=== PATIENT | female | born 1935 | race Caucasian/White ===

== ENCOUNTER 2017-01-14 09:54 | Outpatient (CLI) | payer OTHER ==
[2016-02-23 21:18] VITALS: BP 153/65
== END 2017-01-14 09:55 ==
LOC: RAD 09:54
PROVIDERS: ATTEND Family Medicine
DX: Z78.0 Asymptomatic menopausal state (principal)
CPT/HCPCS: 77080

== ENCOUNTER 2017-01-18 10:26 | Outpatient (CLI) | payer OTHER ==
[2016-02-23 21:18] VITALS: BP 153/65
[2017-01-18 11:20] LABS: eGFR (African) > 60; eGFR (Non-African) > 60
== END 2017-01-18 10:27 ==
LOC: LAB 10:26
PROVIDERS: ATTEND Family Medicine
DX: E78.2 Mixed hyperlipidemia (principal); E03.9 Hypothyroidism, unspecified
CPT/HCPCS: 36415; 80053; 80061; 84443

== ENCOUNTER 2017-01-19 15:02 | Outpatient (CLI) | payer OTHER ==
[2016-02-23 21:18] VITALS: BP 153/65
--- NOTE | 2017-01-19 18:40 | Diagnostic Imaging Report ---
NICOLÁS NIETO [facility] [id number] [facility] [address] [place] [address]. [id number] Report Submission Date: Jan 19, 2017 4:10:54 PM CDT Patient Study Name: RIZWANA KWON Date: Jan 19, 2017 3:30:39 PM CDT Modality Type: CR Gender: F Description: PELVIS : 35 Institution: [facility] Physician: NICOLÁS NIETO Left hip 2 views History: Hip pain without injury Findings: There is overcoverage of the left femoral head by a prominent acetabulum. There is no evidence of fracture, dislocation, significant arthropathy, focal bone lesion. 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 Electronically signed on Jan 19, 2017 4:10:54 PM CDT by: Toney JUARES
== END 2017-01-19 15:03 ==
LOC: RAD 15:02
PROVIDERS: ATTEND Family Medicine
DX: M25.552 Pain in left hip (principal)

== ENCOUNTER 2017-01-28 07:55 | Emergency (ER) | payer OTHER ==
[2017-01-28] MEDS ORDERED: methylPREDNISolone SOD SUCC 125 MG/2 ML VIAL ONE (08:05)
[2017-01-28] MEDS ORDERED: methylPREDNISolone SOD SUCC 125 MG/2 ML VIAL IM ONE (08:06)
--- NOTE | 2017-01-28 08:07 | ED Physician Documentation ---
General Adult - HISTORIAN Historian: patient - HPI Stated Complaint: lip swelling, allergic reaction Chief Complaint: General Adult Onset: hours Timing: still present Severity: moderate Further Comments: yes (Pt is an 82 yo female with pronounced swelling of her lower lip. Pt has had similar sx twice before. Pt awoke with the swelling, which got worse as time progressed. 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 Pt is on Lisinopril among other meds, but has been on this for years, and has been on it since the last episode of lip swelling about 1 month ago. No difficulty with airway, swallowing or breathing. Pt notes that she ate fish last evening, but is not known to have a fish allergy.) - ROS CONST: no problems EYES/ENT: other (lip swelling) CVS/RESP: none GI/: none MS/SKIN/LYMPH: none - PAST HX Past History: hypertension, other (thyroid d/o) Allergies/Adverse Reactions: Allergies Allergy/AdvReac Type Severity Reaction Status Date / Time Sulfa (Sulfonamide AdvReac Intermediate unknown Verified 01/28/17 08:16 Antibiotics) - SOCIAL HX Smoking History: non-smoker - FAMILY HX Family History: No - VITAL SIGNS Vital Signs: Vital Signs Temp Pulse Resp BP Pulse Ox 153/65 02/23/16 20:55 - REVIEWED ASSESSMENTS Nursing Assessment Reviewed: Yes Vitals Reviewed: Yes Progress - Progress Progress: Solu-medrol 125 mg IM improved Rx Prednisone 50 mg. Take one by mouth once daily for 4 days. Start on . Continue Benadryl as directed. Pt advised to discontinue lisinopril and f/u with pcp. ED Results Lab/Radiology - Orders Orders: ED Orders Category Date Time Status methylPREDNISolone SOD SUCC [Solu-MEDROL] Med 01/28/17 08:06 Once 125 mg IM NOW ONE General Adult Physical Exam - PHYSICAL EXAM GENERAL APPEARANCE: no distress EENT: pharynx normal NECK: normal inspection, supple RESPIRATORY: no resp distress, chest non-tender, breath sounds normal CVS: reg rate & rhythm, heart sounds normal BACK: normal inspection SKIN: warm/dry, normal color EXTREMITIES: non-tender, normal range of motion, no evidence of injury NEURO: oriented X3, motor nml, sensation nml Discharge Clincal Impression: lip swelling, allergic reaction Referrals: Kamla Lugo MD [Primary Care Provider] - Condition: Good Disposition: 01 HOME, SELF-CARE Decision to Admit: NO Decision Time: 09:27
[2017-01-28 09:45] VITALS: BP 168/75
== END 2017-01-28 09:45 | disposition home or self-care (01) ==
LOC: ED 07:55
DX: T78.40XA Allergy, unspecified, initial encounter (principal); X58.XXXA Exposure to other specified factors, initial encounter; Y93.9 Activity, unspecified; Y99.9 Unspecified external cause status
CPT/HCPCS: J2930 ×2; 96372; 99283

== ENCOUNTER 2017-02-11 14:25 | Outpatient (CLI) | payer OTHER | END 2017-02-11 14:26 | LOC: POD 14:25 | PROVIDERS: ATTEND Podiatrist | DX: B35.1 Tinea unguium (principal); M79.674 Pain in right toe(s); M79.675 Pain in left toe(s) | CPT/HCPCS: 11721; G0463 ==

== ENCOUNTER 2017-02-22 07:09 | Emergency (ER) | payer OTHER ==
--- NOTE | 2017-02-22 07:48 | ED Physician Documentation ---
General Adult - HISTORIAN Historian: patient - HPI Chief Complaint: General Adult Onset: hours (0600) Timing: still present Severity: mild Further Comments: yes (Patient was here about 1 month ago for swollen lips, felt due to lisinopril and it was stopped. (That was the second episode of her tongue swelling.) Patient stopped the lisinopril. Is allergic to sulfa.) - ROS CONST: no problems. denies: fever, sweating - PAST HX Past History: hypertension, other (history of menningitis) Surgeries/Procedures: hysterectomy, other (cerebral shunt) Immunizations: referred to PCP Allergies/Adverse Reactions: Allergies Allergy/AdvReac Type Severity Reaction Status Date / Time LENNY Inhibitors Allergy Intermediate lips Verified 02/22/17 07:41 swelling Sulfa (Sulfonamide AdvReac Intermediate unknown Verified 02/22/17 07:41 Antibiotics) Home Medications: Ambulatory Orders Medication Instructions Recorded Epinephrine [Epipen 2-Los] 0.3 mg IJ DIRECTED #1 ml 02/22/17 - SOCIAL HX Smoking History: non-smoker Alcohol Use: none Drug Use: none - FAMILY HX Family History: No - VITAL SIGNS Vital Signs: Vital Signs Temp Pulse Resp BP Pulse Ox 168/75 01/28/17 09:44 - REVIEWED ASSESSMENTS Nursing Assessment Reviewed: Yes General Adult Physical Exam - PHYSICAL EXAM GENERAL APPEARANCE: no distress EENT: eye inspection normal, other (swelling to right tongue area, no dental problems appreciated. ) NECK: normal inspection, thyroid normal. No: lymphadenopathy, stiff neck RESPIRATORY: no resp distress, chest non-tender, breath sounds normal. No: wheezes, rales, rhonchi CVS: reg rate & rhythm, heart sounds normal, equal pulses, no murmur SKIN: warm/dry NEURO: oriented X3 Discharge Clincal Impression: Mild tongue swelling Prescriptions: Epinephrine [Epipen 2-Los] 0.3 mg IJ DIRECTED #1 ml Referrals: Kamla Lugo MD [Primary Care Provider] - 2 Days Additional Instructions: General Adult - HISTORIAN Historian: patient - HPI Chief Complaint: General Adult Onset: hours (0600) Timing: still present Severity: mild Further Comments: yes (Patient was here about 1 month ago for swollen lips, felt due to lisinopril and it was stopped. (That was the second episode of her tongue swelling.) Patient stopped the lisinopril. Is allergic to sulfa.) - ROS CONST: no problems. denies: fever, sweating - PAST HX Past History: hypertension, other (history of menningitis) Surgeries/Procedures: hysterectomy, other (cerebral shunt) Immunizations: referred to PCP Allergies/Adverse Reactions: Allergies Allergy/AdvReac Type Severity Reaction Status Date / Time LENNY Inhibitors Allergy Intermediate lips Verified 02/22/17 07:41 swelling Sulfa (Sulfonamide AdvReac Intermediate unknown Verified 02/22/17 07:41 Antibiotics) Home Medications: Ambulatory Orders Medication Instructions Recorded Epinephrine [Epipen 2-Los] 0.3 mg IJ DIRECTED #1 ml 02/22/17 - SOCIAL HX Smoking History: non-smoker Alcohol Use: none Drug Use: none - FAMILY HX Family History: No - VITAL SIGNS Vital Signs: Vital Signs Temp Pulse Resp BP Pulse Ox 168/75 01/28/17 09:44 - REVIEWED ASSESSMENTS Nursing Assessment Reviewed: Yes General Adult Physical Exam - PHYSICAL EXAM GENERAL APPEARANCE: no distress EENT: eye inspection normal, other (swelling to right tongue area, no dental problems appreciated. ) NECK: normal inspection, thyroid normal. No: lymphadenopathy, stiff neck RESPIRATORY: no resp distress, chest non-tender, breath sounds normal. No: wheezes, rales, rhonchi CVS: reg rate & rhythm, heart sounds normal, equal pulses, no murmur SKIN: warm/dry NEURO: oriented X3 Discharge Clincal Impression: Mild tongue swelling Prescriptions: Epinephrine [Epipen 2-Los] 0.3 mg IJ DIRECTED #1 ml Referrals: Kamla Lugo MD [Primary Care Provider] - 2 Days Additional Instructions: Write down what you had to eat yesterday. Make an appointment to see Dr Lugo about further work-up. If you have any further problems to let me know. Take Benadryl if needed for itching. Use epipen if you develop some severe breathing problems. Home Medications: Ambulatory Orders Epinephrine [Epipen 2-Los] 0.3 mg IJ DIRECTED #1 ml 02/22/17 Condition: Stable Disposition: 01 HOME, SELF-CARE Decision to Admit: NO Date of Decison to Admit: 02/22/17 Decision Time: 07:51 Write down what you had to eat yesterday. Make an appointment to see Dr Lugo about further work-up. If you have any further problems to let me know. Take Benadryl if needed for itching. Use epipen if you develop some severe breathing problems. Home Medications: Ambulatory Orders Epinephrine [Epipen 2-Los] 0.3 mg IJ DIRECTED #1 ml 02/22/17 Condition: Stable Disposition: 01 HOME, SELF-CARE Decision to Admit: NO Date of Decison to Admit: 02/22/17 Decision Time: 07:51
[2017-02-22] MEDS ORDERED: methylPREDNISolone ACETATE 80 MG/ML VIAL IM ONE (07:54)
[2017-02-22 08:29] VITALS: BP 150/70
== END 2017-02-22 08:09 | disposition home or self-care (01) ==
LOC: ED 07:09
DX: R60.9 Edema, unspecified (principal)
CPT/HCPCS: 96372; 99283; J1040

== ENCOUNTER 2017-05-13 14:19 | Outpatient (CLI) | payer OTHER | END 2017-05-13 14:20 | LOC: POD 14:19 | PROVIDERS: ATTEND Podiatrist | DX: B35.1 Tinea unguium (principal); M79.674 Pain in right toe(s); M79.675 Pain in left toe(s) | CPT/HCPCS: 11721; G0463 ==

== ENCOUNTER 2017-06-27 23:00 | Emergency (ER) | payer OTHER ==
[2017-06-27] MEDS ORDERED: methylPREDNISolone ACETATE 80 MG/ML VIAL IM ONE (23:10)
[2017-06-27] MEDS ORDERED: LORATADINE 10 MG TABLET PO ONE (23:10)
[2017-06-27] MEDS ORDERED: diphenhydrAMINE HCL 50 MG/ML VIAL IM ONE (23:11)
--- NOTE | 2017-06-27 23:18 | ED Physician Documentation ---
General Adult - HISTORIAN Historian: patient - HPI Stated Complaint: Lip swelling Chief Complaint: General Adult Further Comments: yes (82 year old female patient presents with complaint of lip swelling. Patient states the swelling started around 2214. Started kenalog cream on Tuesday, states she was outside mowing all day today. Denies any new food, exposure to chemicals, no new lotions or soaps. Denies SOB, denies itching or pain. 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, hypothyroidism) Allergies/Adverse Reactions: Allergies Allergy/AdvReac Type Severity Reaction Status Date / Time LENNY Inhibitors Allergy Intermediate lips Verified 06/27/17 23:22 swelling Sulfa (Sulfonamide AdvReac Intermediate unknown Verified 06/27/17 23:22 Antibiotics) Home Medications: Ambulatory Orders Medication Instructions Recorded Acetaminophen/Diphenhydramine 1 each PO HS PRN 06/27/17 [Tylenol Pm Ex-Strength Caplet] Calcium Carbonate/Vitamin D3 1 tab PO QDAY 06/27/17 [Calcium 600 + Vit D3 Caplet] Dietary Supplement [Hyprost] 1 each PO QDAY 06/27/17 Epinephrine [Epipen 2-Los] 0.3 mg IJ DIRECTED PRN 06/27/17 Ranitidine HCl 150 mg PO QDAY 06/27/17 Vitamin B Complex/Folic Acid 0.4 mg PO QDAY 06/27/17 [Super B Maxi Complex Caplet] - SOCIAL HX Smoking History: non-smoker - FAMILY HX Family History: No - VITAL SIGNS Vital Signs: Vital Signs Temp Pulse Resp BP Pulse Ox 69 16 170/72 95 06/27/17 23:00 06/27/17 23:00 06/27/17 23:00 06/27/17 23:00 - REVIEWED ASSESSMENTS Nursing Assessment Reviewed: Yes Vitals Reviewed: Yes Progress - Progress Progress: Ice to patient's lip. At discharge, symptoms improved. Reviewed discharge instructions. Patient verbalized understanding. ED Results Lab/Radiology - Orders Orders: ED Orders Category Date Time Status Loratadine [Claritin] Med 06/27/17 23:10 Once 10 mg PO NOW ONE diphenhydrAMINE HCL [Benadryl] Med 06/27/17 23:11 Once 50 mg IM NOW ONE methylPREDNISolone ACETATE [Depo-Medrol] Med 06/27/17 23:10 Once 80 mg IM NOW ONE General Adult Physical Exam - PHYSICAL EXAM GENERAL APPEARANCE: mild distress EENT: eye inspection normal, pharynx normal, no signs of dehydration, NORMA, no nystagmus, TM's nml, other (lower lip with significant edema) RESPIRATORY: no resp distress, chest non-tender, breath sounds normal CVS: reg rate & rhythm, heart sounds normal, equal pulses, no murmur, no gallop , PMI nml, no JVD, no friction rub, 24 ABDOMEN: soft, no organomegaly, normal bowel sounds, no abdominal bruit, no distension SKIN: normal color, warm/dry, NR, INT, PAL, DR EXTREMITIES: non-tender, normal range of motion, no evidence of injury, no edema , J, REGIONAL BUSINESS DEVELOPMENT MANAGER NEURO: oriented X3, CN's nml as tested, motor nml, sensation nml, mood/affect nml Discharge Clincal Impression: Lip edema Allergic reaction Qualifiers: Encounter type: initial encounter Qualified Code(s): T78.40XA - Allergy, unspecified, initial encounter Referrals: Kamla Lugo MD [Primary Care Provider] - 2 Days Additional Instructions: Stop kenalog cream Allergic reaction: Continue Benadryl 25-50mg by mouth every 6 hours until symptoms resolve Take either Claritan, Allergra, or Zyrtec daily until symptoms resolve. See your primary doctor or return to the ER if you have increase shortness of breath or difficulty breathing. Use your epi pen if your symptoms become worse or you have SOB Home Medications: Ambulatory Orders Acetaminophen/Diphenhydramine [Tylenol Pm Ex-Strength Caplet] 1 each PO HS PRN 06/27/17 Calcium Carbonate/Vitamin D3 [Calcium 600 + Vit D3 Caplet] 1 tab PO QDAY Dietary Supplement [Hyprost] 1 each PO QDAY 06/27/17 Epinephrine [Epipen 2-Los] 0.3 mg IJ DIRECTED PRN 06/27/17 Ranitidine HCl 150 mg PO QDAY 06/27/17 Vitamin B Complex/Folic Acid [Super B Maxi Complex Caplet] 0.4 mg PO QDAY Condition: Stable Disposition: 01 HOME, SELF-CARE Decision to Admit: NO Decision Time: 23:45
[2017-06-28] MEDS ORDERED: FAMOTIDINE/PF 20 MG/2 ML VIAL IVP ONE
[2017-06-28] MEDS ORDERED: FAMOTIDINE 20 MG TABLET PO ONE (00:06)
[2017-06-28] MEDS ORDERED: FAMOTIDINE 20 MG TABLET ONE (00:06)
[2017-06-28 00:48] VITALS: BP 132/52
== END 2017-06-28 00:15 | disposition home or self-care (01) ==
LOC: ED 23:00
DX: T78.3XXA Angioneurotic edema, initial encounter (principal); T78.40XA Allergy, unspecified, initial encounter; X58.XXXA Exposure to other specified factors, initial encounter; Y93.9 Activity, unspecified; Y99.9 Unspecified external cause status
CPT/HCPCS: J1040; J1200; 96372; 99283

== ENCOUNTER 2017-08-23 14:25 | Outpatient (CLI) | payer OTHER | END 2017-08-23 14:26 | LOC: POD 14:25 | PROVIDERS: ATTEND Podiatrist | DX: B35.1 Tinea unguium (principal); M79.674 Pain in right toe(s); M79.675 Pain in left toe(s) | CPT/HCPCS: 11721; G0463 ==

== ENCOUNTER 2017-09-18 10:10 | Emergency (ER) | payer OTHER ==
[2017-09-18] MEDS ORDERED: methylPREDNISolone ACETATE 80 MG/ML VIAL IM ONE (10:46)
[2017-09-18] MEDS: methylPREDNISolone ACETATE 80 MG/ML VIAL IM PRN (10:48)
--- NOTE | 2017-09-18 10:48 | ED Physician Documentation ---
Allergy Symptoms - HISTORIAN Historian: patient, spouse - HPI Stated Complaint: Swelling to Upper Lip Chief Complaint: Allergic Reaction Additional Information: RECURRENT UPPER LIP SWELLING-UNSURE OF ETIOL-PT DESIRES STEROID Onset: days ago (629) Duration: continues in ED Associated Symptoms: itching Swelling: lip(s) Shortness of Breath: none Trouble Swallowing/ Speaking: none - ROS EYES/ENT: none CVS/RESP: none GI/: none CONST: none MS/SKIN/LYMPH: none NEURO/PSYCH: none - PAST HX Prior Allergic Reaction: hives, other (SEVERAL PREVIOUS LIP) Allergies/Adverse Reactions: Allergies Allergy/AdvReac Type Severity Reaction Status Date / Time LENNY Inhibitors Allergy Intermediate lips Verified 09/18/17 10:21 swelling Sulfa (Sulfonamide AdvReac Intermediate unknown Verified 09/18/17 10:21 Antibiotics) Home Medications: Ambulatory Orders Medication Instructions Recorded Acetaminophen/Diphenhydramine 1 each PO HS PRN 06/27/17 [Tylenol Pm Ex-Strength Caplet] Calcium Carbonate/Vitamin D3 1 tab PO QDAY 06/27/17 [Calcium 600 + Vit D3 Caplet] Dietary Supplement [Hyprost] 1 each PO QDAY 06/27/17 Epinephrine [Epipen 2-Los] 0.3 mg IJ DIRECTED PRN 06/27/17 Ranitidine HCl 150 mg PO QDAY 06/27/17 Vitamin B Complex/Folic Acid 0.4 mg PO QDAY 06/27/17 [Super B Maxi Complex Caplet] - SOCIAL HX Smoking History: non-smoker Alcohol Use: none Drug Use: none - FAMILY HX Family History: No - VITAL SIGNS Vital Signs: Vital Signs Temp Pulse Resp BP Pulse Ox 98.1 F 63 18 147/71 96 09/18/17 10:10 09/18/17 10:10 09/18/17 10:10 09/18/17 10:10 09/18/17 10:10 - REVIEWED ASSESSMENTS Nursing Assessment Reviewed: Yes Vitals Reviewed: Yes ED Results Lab/Radiology - Orders Orders: ED Orders Category Date Time Status methylPREDNISolone ACETATE [Depo-Medrol] Med 09/18/17 10:44 Ordered 80 mg IM NOW PRN Allergy Symptons Exam - EXAM General Appearance: alert, mild distress, anxious Skin: nml color, warm Extremities: non-tender, nml ROM Neck: nml inspection Respiratory: no resp. distress, breath sounds nml CVS: reg rate & rhythm, heart sounds normal Abdomen: non-tender Neuro: oriented X3, motor nml, sensation nml, mood/affect nml Discharge Clincal Impression: UPPER LIP SWELLING - ALLERGIC RXN Referrals: Kamla Lugo MD [Primary Care Provider] - 2 Days Condition: Good Disposition: 01 HOME, SELF-CARE Decision to Admit: NO Decision Time: 10:50
[2017-09-18 10:59] VITALS: BP 147/71
== END 2017-09-18 10:56 | disposition home or self-care (01) ==
LOC: ED 10:10
DX: R60.9 Edema, unspecified (principal)
CPT/HCPCS: 96372; 99283; J1040

== ENCOUNTER 2018-01-11 10:48 | Outpatient (CLI) | payer OTHER ==
[2018-01-11 11:39] LABS: eGFR (African) > 60; eGFR (Non-African) > 60
== END 2018-01-11 10:50 ==
LOC: LAB 10:48
PROVIDERS: ATTEND Family Medicine
DX: E03.9 Hypothyroidism, unspecified (principal); E78.2 Mixed hyperlipidemia
CPT/HCPCS: 36415; 80053; 80061; 84443

== ENCOUNTER 2018-01-17 14:03 | Outpatient (CLI) | payer OTHER | END 2018-01-17 14:04 | LOC: CARD 14:03 | PROVIDERS: ATTEND Internal Medicine Cardiovascular Disease | DX: R01.1 Cardiac murmur, unspecified (principal) ==

== ENCOUNTER 2018-06-29 10:41 | Outpatient (CLI) | payer OTHER | END 2018-06-29 10:42 | LOC: LAB 10:41 | PROVIDERS: ATTEND Family Medicine | DX: E03.9 Hypothyroidism, unspecified (principal) | CPT/HCPCS: 36415; 84443 ==

== ENCOUNTER 2019-01-22 09:08 | Outpatient (CLI) | payer OTHER ==
[2019-01-22 10:10] LABS: eGFR (Non-African) > 60
== END 2019-01-22 09:15 ==
LOC: LAB 09:08
PROVIDERS: ATTEND Family Medicine
DX: E78.2 Mixed hyperlipidemia (principal); E03.9 Hypothyroidism, unspecified
CPT/HCPCS: 36415; 80053; 80061; 84443

== ENCOUNTER 2019-07-31 10:55 | Outpatient (CLI) | payer OTHER ==
[2019-07-31 11:38] LABS: eGFR (Non-African) > 60
[2019-07-31 11:39] LABS: HDL 54 mg/dL (>40)
== END 2019-07-31 11:00 | disposition home or self-care (01) ==
LOC: LAB 10:55
PROVIDERS: ATTEND Family Medicine
DX: E78.2 Mixed hyperlipidemia (principal)
CPT/HCPCS: 36415; 80053; 80061